=== PATIENT | female | born 1955 | race Caucasian/White ===

== ENCOUNTER → 2018-05-13 | Outpatient (CLI) | payer OTHER ==
--- NOTE | 2018-05-13 18:45 | MRI ---
EXAM DESCRIPTION: Lumbar Spine w/o Contrast CLINICAL HISTORY: BACK PAIN COMPARISON: None Available. TECHNIQUE: MRI of the lumbar spine is performed according to our usual protocol with axial and sagittal multi sequence imaging. FINDINGS: Sagittal T2 images reveal decreased signal intensity consistent with desiccation of the intervertebral discs at all lumbar levels. Posterior annular bulge is present at T12-L1. No prevertebral mass or aneurysm. Lower cord and conus appear normal. Tip of the conus is behind upper L2. Linear low signal intensity in the anterior aspect of lower L5 and upper S1 is artifactual. Modic type II changes around degenerated L5-S1 disc. Hemangiomas of the spine are seen at L1 and T11. Sagittal T1 images reveal benign marrow signal characteristics. Normal T1 signal intensity and appearance of the lower cord and conus. Sagittal STIR images are negative for marrow edema within the vertebral bodies or posterior elements. No paraspinous fluid collection or cystic lesion. Axial T1 and T2-weighted images were obtained to evaluate the disc levels. T12-L1: No posterior annular bulge or herniation. No spinal stenosis or neural foraminal narrowing. Facets appear normal. Normal appearance of the lower cord and conus. L1-2: No posterior annular bulge or herniation. No spinal stenosis or neural foraminal narrowing. Mild facet hypertrophic changes. L2-3: No posterior annular bulge or herniation. No spinal stenosis or neural foraminal narrowing. Facet hypertrophic changes are mild. L3-4: No posterior annular bulge or herniation. No spinal stenosis or neural foraminal narrowing. Mild facet hypertrophy and ligamentum flavum thickening. No significant subarticular recess or lateral recess compromise. L4-5: No posterior annular bulge or herniation. No spinal stenosis or neural foraminal narrowing. Mild facet hypertrophy and ligamentum flavum thickening. No subarticular recess compromise. L5-S1: Mild diffuse posterior annular bulge with right paracentral and posterior left lateral accentuation. No spinal stenosis or right-sided neural foraminal narrowing. There is [id number] left neural foraminal narrowing related to bulging disc material. Facets appear mildly hypertrophic with mild left subarticular recess narrowing. Sacrum appears intact. No retroperitoneal mass or aneurysm. IMPRESSION: Mild diffuse posterior annular bulge at L5-S1 with right paracentral and left lateral accentuation mildly narrowing the left L5 neural foramen. Electronically signed by: Pablo Coronel MD 05/13/2018 6:44 PM [facility]
--- NOTE | 2018-05-14 08:18 | MRI ---
Study: MRI of the Right Shoulder. Indication: SHOULDER PAIN Technique: Multiplanar, multi sequence MRI of the right shoulder was obtained without intravenous contrast. Comparison: None. Findings: Examination moderately motion degraded. Mild AC joint osteoarthritis. Type I acromion with mild lateral downsloping. Trace subacromial/subdeltoid bursal fluid. Supraspinatus and infraspinatus tendinosis with scattered bursal surface fraying throughout both tendons. A low to intermediate grade interstitial tear suspected at the conjoined tendon insertion but difficult to evaluate given motion degradation. It measures approximately 6 mm transverse by 5 mm AP. Along the posterior/medial margin of this site as noted on coronal T2 fat sat image 12 there is a suspected 3 mm focus of calcium hydroxyapatite deposition at the medial margin of the horizontal footprint. Subscapularis tendinosis. Teres minor tendon intact. Rotator cuff musculature normal without atrophy, fatty infiltration, or intramuscular edema. Long head biceps tendon intact. Circumferential labral truncation noted. Undersurface tearing of the base of the superior labrum suspected. Minimal glenohumeral joint osteoarthritis. No acute fracture. Impression: Moderately motion degraded examination. Repeat examination recommended if/when the patient can tolerate. Supraspinatus and infraspinatus tendinosis and scattered bursal fraying with suspected low to intermediate grade interstitial tearing of the conjoined tendon insertion and minimal calcium hydroxyapatite deposition posterior to this site. Subscapularis tendinosis. Circumferential labral truncation noted. Undersurface tearing superior labrum suspected as well. Minimal glenohumeral joint osteoarthritis. Mild AC joint osteoarthritis. Electronically signed by: Ha Wan MD 05/14/2018 8:17 AM [facility]
== END ==
LOC: MRI 13:06
PROVIDERS: ATTEND Family Medicine
DX: M54.5 Low back pain (principal); M51.86 Other intervertebral disc disorders, lumbar region; M19.011 Primary osteoarthritis, right shoulder; M75.91 Shoulder lesion, unspecified, right shoulder; M25.511 Pain in right shoulder

== ENCOUNTER → 2018-07-30 | Outpatient (CLI) | payer OTHER ==
--- NOTE | 2018-07-30 10:56 | CT ---
EXAM DESCRIPTION: Chest w/o Contrast CLINICAL HISTORY: Sprain of sternoclavicular (joint) (ligament), initial encounter COMPARISON: CT neck same day TECHNIQUE: Noncontrast transaxial CT images of the chest are obtained. This exam was performed according to our departmental dose-optimization program, which includes automated exposure control, adjustment of the mA and/or kV according to patient size and/or use of iterative reconstruction technique . FINDINGS: The heart and great vessels are unremarkable. No pathologically enlarged mediastinal, hilar, or axillary lymphadenopathy seen. No pleural or pericardial effusion is seen. Visualized portion of the upper abdomen shows no acute findings. Breast soft tissues are unremarkable on CT imaging. Lungs are normally aerated without acute appearing infiltrate or consolidation. Small calcified pulmonary nodules in the left lower lobe are seen. No noncalcified pulmonary nodules are identified. Osseous structures show no aggressive bony lesions. No clavicle or rib fracture is seen. The sternoclavicular joints are normal and symmetric. No osseous erosive changes or obvious joint effusion is seen. Mild disc degenerative changes of the thoracic spine are seen. IMPRESSION: No acute findings on noncontrast CT of the chest. Sternoclavicular joints are unremarkable. Calcified pulmonary nodules in the left lower lobe suggests old granulomatous disease. Electronically signed by: Eric Dhillon MD 07/30/2018 10:53 AM [employer]
--- NOTE | 2018-07-30 11:17 | CT ---
EXAM DESCRIPTION: Soft Tissue Neck CLINICAL HISTORY: Sprain of sternoclavicular (joint) (ligament), initial encounter COMPARISON: CT chest same day TECHNIQUE: Noncontrast transaxial CT images of the neck are obtained with coronal and sagittal reconstructed images. This exam was performed according to our departmental dose-optimization program, which includes automated exposure control, adjustment of the mA and/or kV according to patient size and/or use of iterative reconstruction technique . FINDINGS: Visualized skull base, paranasal sinuses, mastoid air cells are unremarkable. Bilateral parotid and submandibular glands are normal and symmetric. Mild calcifications of the right tonsil are seen. No soft tissue mass or asymmetry of the posterior pharynx or tongue is seen. The epiglottis and vocal cords are unremarkable. Thyroid is unremarkable. The vasculature is unremarkable. Several scattered nonspecific less than 1 cm submental, submandibular, and cervical chain lymph nodes are seen bilaterally. Sternocleidomastoid muscles are normal and symmetric. Spine is unremarkable. Poor dentition is seen. Visualized clavicles unremarkable. Sternoclavicular joints are normal and measured. No osseous erosive changes are seen. No joint effusion is identified. Surrounding soft tissues are unremarkable. IMPRESSION: Unremarkable noncontrast CT of the neck. No CT abnormality of the sternoclavicular joints is seen. Poor dentition is incidentally noted. Electronically signed by: Eric Dhillon MD 07/30/2018 11:14 AM [employer]
== END ==
LOC: CT 09:30
PROVIDERS: ATTEND Family Medicine
DX: S23.420A Sprain of sternoclavicular (joint) (ligament), initial encounter (principal); R91.8 Other nonspecific abnormal finding of lung field